=== PATIENT | female | born 1965 | race Two or more races ===

== ENCOUNTER 2021-01-07 11:34 | Emergency (ER) | payer OTHER ==
[~2021-01-07] VITALS: Ht 152.4 cm; Wt 76.2 kg
[2021-01-08] MEDS ORDERED: MIRALAX510 GM PO (01:03)
== END 2021-01-08 01:12 | disposition home or self-care (01) ==
LOC: ER 11:34
DX: K59.09 Other constipation (principal); K62.89 Other specified diseases of anus and rectum

== ENCOUNTER 2023-05-03 15:53 | Emergency (ER) | payer OTHER ==
[~2023-05-03] VITALS: Ht 157.5 cm; Wt 90.7 kg
[~2023-05-03 15:53] MED LIST: LAXATIVE5 MG; MIRALAX510 GM PO
== END 2023-05-03 20:01 | disposition home or self-care (01) ==
LOC: ER 15:53
DX: R10.32 Left lower quadrant pain (principal); R19.7 Diarrhea, unspecified

== ENCOUNTER 2024-11-27 15:26 | Emergency (ER) | payer OTHER ==
[~2024-11-27] VITALS: Ht 157.5 cm; Wt 99.8 kg
[2024-11-27 15:42] VITALS: BP 140/92; O2SAT 96
[2024-11-27 18:03] LABS: HEMATOCRIT 43.7 % (36.0-45.00); HEMOGLOBIN 14.5 g/dL (12.0-15.00); MEAN CELL VOLUME 90.1 fL (80.00-100.00); MEAN CORPUSCULAR HEMOGLOBIN 29.9 pg (27.00-32.0); MEAN CORPUSCULAR HGB CONC 33.2 g/dl (32.0-36.0); PLATELET COUNT 362 K/uL (150-450); RED BLOOD COUNT 4.85 M/uL (4.00-6.00); RED CELL DISTRIBUTION WIDTH 14.4 % (11.5-14.5)
[2024-11-27 18:52] LABS: PH,URINE 5.5 (5.0-8.0); URINE APPEARANCE Cloudy; URINE BILIRRUBIN Negative (NEGATIVE); URINE BLOOD Large; URINE COLOR Yellow; URINE GLUCOSE Negative (NEGATIVE); URINE KETONE Negative (NEGATIVE); URINE LEUKOCYTE Trace; URINE NITRATE Negative; URINE PROTEIN Trace (NEGATIVE)
[2024-11-27 18:53] LABS: URINE BACTERIA 214.1 uL (0.0-1933); URINE RBC 7558.1 uL (0.0-20.8); URINE WBC 29.2 uL (0.0-23.2)
== END 2024-11-27 22:56 | disposition home or self-care (01) ==
LOC: ER 15:29
PROVIDERS: Emergency Medicine
DX: N93.9 Abnormal uterine and vaginal bleeding, unspecified (principal)